=== PATIENT | female | born 1975 | race Two or more races ===

== ENCOUNTER 2016-07-12 14:58 | Inpatient (IN) | payer MEDICAID ==
[~2016-07-12] VITALS: Ht 160 cm; Wt 88.5 kg
[~2016-07-12 14:58] MED LIST: CITA20TA3 PO; CLON0.1D7 TD; LOSA50TA6 PO; NOR10T PO
[2016-07-12 15:32] LABS: Basophils # (auto) 0 uL; Basophils % (auto) 0.3 % (0.0-2.0); Eosinophils # (auto) 0.2 uL; Eosinophils % (auto) 2.9 % (0.0-7.0); Hematocrit 36.9 % (36.0-46.0); Hemoglobin 12.4 g/dL (12.2-16.2); Lymphocytes # (auto) 1.1 uL; Lymphocytes % (auto) 13.3 % (10.0-50.0); Mean Corpuscular Hemoglobin 29.9 pg (28.0-32.0); Mean Corpuscular Hgb Conc. 33.5 g/dL (32.0-36.0); Mean Corpuscular Volume 89.3 fL (80.0-100.0); Mean Platelet Volume 7.9 fL (7.4-10.4); Monocytes # (auto) 0.2 uL; Monocytes % (auto) 2.7 % (0.0-12.0); Neutrophils # (auto) 6.4 uL; Neutrophils % (auto) 80.8 % (37.0-80.0); Platelet Count (auto) 303 10^3/uL (140-450); Red Cell Distribution Width 14.5 % (11.6-16.0); White Blood Cell 7.9 10^3/uL (4.4-10.8)
[2016-07-12 15:53] LABS: Albumin 3.3 g/dL (3.4-5.0); Alkaline Phosphatase 197 U/L (45-117); Anion Gap 10 (5-15); Aspartate Aminotransferase 15 U/L (15-37); BUN/Creatinine Ratio 11.6; Bilirubin, Total 0.5 mg/dL (0.2-1.0); Blood Urea Nitrogen 31 mg/dL (7-18); Calcium 8.5 mg/dL (8.5-10.1); Carbon Dioxide 15 mmol/L (21-32); Chloride 113 mmol/L (98-107); GFR African American 25 mL/min; GFR Non-African American 21 mL/min; Glucose 260 mg/dL (74-106); Magnesium 2.2 mg/dL (1.6-2.6); Potassium 4.8 mmol/L (3.5-5.1); Sodium 138 mmol/L (136-145); Total Protein 6.9 g/dL (6.4-8.2)
[2016-07-12] MEDS ORDERED: LABETALOL HCL 5 MG/ML 4ML SYRINGE IV ONE (17:15)
[2016-07-12] MEDS ORDERED: MORPHINE SULFATE 4 MG/ML SYRG IV ONE (19:30)
[2016-07-12] MEDS ORDERED: cloNIDine HCL 0.1 MG TAB PO ONE (19:30)
[2016-07-12] MEDS ORDERED: ONDANSETRON HCL 4 MG/2 ML VIAL IV ONE (19:30)
[2016-07-12] MEDS ORDERED: HYDROmorphone HCL 2 MG/ML VL IV ONE (20:15)
[2016-07-12] MEDS ORDERED: PROMETHAZINE HCL 25 MG/ML 1ML IV ONE (20:15)
[2016-07-12] MEDS ORDERED: ACETAMINOPHEN 325 MG TAB PO PRN (21:15)
[2016-07-12] MEDS ORDERED: DEXTROSE (50%) 50ML SYRG IV PRN (21:15)
[2016-07-12] MEDS ORDERED: FAMOTIDINE 20 MG TAB PO SCH (22:00)
[2016-07-12] MEDS ORDERED: ENOXAPARIN SOD 30 MG/0.3 ML SYRINGE SC ONE (22:00)
[2016-07-12] MEDS: CARVEDILOL 3.125 MG TAB PO SCH (22:00)
[2016-07-12] MEDS: cloNIDine HCL 0.1 MG TAB PO SCH (22:00)
[2016-07-12] MEDS: ATORVASTATIN 20 MG TAB PO SCH (23:05)
[2016-07-12] MEDS ORDERED: TRAM50TA2 PO (23:41)
[2016-07-13] VITALS (9 sets, daily range): BP systolic 112–131; BP diastolic 72–86
[2016-07-13] MEDS: ACCU-CHEK COMFORT CURVE STRIP VI SCH ×4 (00:14→17:29)
[2016-07-13] MEDS: InsuLIN REG 1unit/0.01ml Soln (100units/ml) SC SCH ×4 (00:14→18:03)
[2016-07-13] MEDS: HYDROcodone-ACET 5/325MG TAB PO PRN ×2 (00:20→05:59)
[2016-07-13] MEDS: cloNIDine HCL 0.1 MG TAB PO SCH ×3 (05:58→21:48)
[2016-07-13] MEDS: FUROSEMIDE 20 MG TAB PO SCH ×2 (05:58→18:06)
[2016-07-13 06:34] LABS: Basophils # (auto) 0 uL; Basophils % (auto) 0.4 % (0.0-2.0); Eosinophils # (auto) 0.2 uL; Eosinophils % (auto) 4.4 % (0.0-7.0); Hemoglobin 10.2 g/dL (12.2-16.2); Lymphocytes # (auto) 1.8 uL; Lymphocytes % (auto) 31.4 % (10.0-50.0); Mean Corpuscular Hemoglobin 29.9 pg (28.0-32.0); Mean Corpuscular Hgb Conc. 33.8 g/dL (32.0-36.0); Mean Corpuscular Volume 88.5 fL (80.0-100.0); Mean Platelet Volume 7.9 fL (7.4-10.4); Monocytes # (auto) 0.4 uL; Monocytes % (auto) 6.8 % (0.0-12.0); Neutrophils # (auto) 3.2 uL; Platelet Count (auto) 265 10^3/uL (140-450); Red Cell Distribution Width 14.2 % (11.6-16.0); White Blood Cell 5.7 10^3/uL (4.4-10.8)
[2016-07-13 07:18] LABS: Albumin 2.6 g/dL (3.4-5.0); BUN/Creatinine Ratio 11.3; Bilirubin, Total 0.3 mg/dL (0.2-1.0); Calcium 7.9 mg/dL (8.5-10.1); Potassium 4.5 mmol/L (3.5-5.1); Total Protein 5.7 g/dL (6.4-8.2)
[2016-07-13] MEDS: ENOXAPARIN SOD 30 MG/0.3 ML SYRINGE SC SCH (09:29)
[2016-07-13] MEDS: METOCLOPRAMIDE HCL 10 MG TAB PO SCH ×3 (09:31→21:49)
[2016-07-13] MEDS: DEXAMETHASONE SOD PHOS 10MG/1ML VIAL INJ IV SCH (09:31)
[2016-07-13] MEDS: LOSARTAN POTASSIUM 50 MG TAB PO SCH (09:32)
[2016-07-13] MEDS: FOLIC ACID 1 MG TAB PO SCH (09:32)
[2016-07-13] MEDS: CARVEDILOL 3.125 MG TAB PO SCH ×2 (09:32→21:49)
[2016-07-13] MEDS: amLODIPine BESYLATE 5 MG TAB PO SCH (09:32)
[2016-07-13] MEDS: FAMOTIDINE 20 MG TAB PO SCH (09:32)
[2016-07-13] MEDS: PYRIDOXINE HCL 50 MG TAB PO SCH (09:33)
[2016-07-13] MEDS: CYANOCOBALAMIN 500 MCG TAB PO SCH (09:33)
[2016-07-13] MEDS: ASPirin 81 mg TAB PO SCH (09:33)
[2016-07-13] MEDS: SERTRALINE HCL 50 MG TAB PO SCH (09:33)
[2016-07-13] MEDS ORDERED: PROMETHAZINE HCL 25 MG/ML 1ML IV PRN (09:45)
[2016-07-13] MEDS ORDERED: KETOROLAC TROMETH 30 MG/ML 1ML VIAL IV ONE (09:45)
[2016-07-13] MEDS: diphenhdrAMINE HCL 50 MG/1 ML VL IV PRN (10:40)
[2016-07-13] MEDS: HYDROmorphone HCL 2 MG/ML VL IV PRN ×2 (14:37→22:27)
[2016-07-13] MEDS: ATORVASTATIN 20 MG TAB PO SCH (21:47)
[2016-07-13] MEDS: TEMAZEPAM 15 MG CAP PO PRN (21:49)
[2016-07-13 22:46] LABS: Urine Bilirubin Negative (Negative); Urine Blood Negative /uL (Negative); Urine Color Yellow (Yellow); Urine Glucose 3+ mg/dL (Normal); Urine Ketone Negative (Negative); Urine Nitrite Negative (Negative); Urine RBC 1 /hpf (0 - 4); Urine Squamous Epithelial Cell MOD /hpf (<5); Urine Urobilinogen Normal (Negative); Urine pH 5.5 (5.0-8.0)
[2016-07-14] MEDS: ACCU-CHEK COMFORT CURVE STRIP VI SCH ×4 (00:42→17:20)
[2016-07-14] MEDS: InsuLIN REG 1unit/0.01ml Soln (100units/ml) SC SCH ×4 (01:16→17:35)
[2016-07-14 05:30] VITALS: BP 139/71
[2016-07-14] MEDS: FUROSEMIDE 20 MG TAB PO SCH ×2 (06:18→17:47)
[2016-07-14] MEDS: METOCLOPRAMIDE HCL 10 MG TAB PO SCH ×3 (06:18→22:13)
[2016-07-14] MEDS: cloNIDine HCL 0.1 MG TAB PO SCH ×3 (06:19→22:14)
[2016-07-14 06:30] LABS: Basophils # (auto) 0 uL; Basophils % (auto) 0.1 % (0.0-2.0); Eosinophils # (auto) 0 uL; Hematocrit 32.6 % (36.0-46.0); Hemoglobin 10.9 g/dL (12.2-16.2); Lymphocytes # (auto) 1.1 uL; Lymphocytes % (auto) 9.5 % (10.0-50.0); Mean Corpuscular Hemoglobin 29.9 pg (28.0-32.0); Mean Corpuscular Hgb Conc. 33.6 g/dL (32.0-36.0); Mean Platelet Volume 8.2 fL (7.4-10.4); Monocytes # (auto) 0.3 uL; Monocytes % (auto) 2.6 % (0.0-12.0); Neutrophils % (auto) 87.8 % (37.0-80.0); Platelet Count (auto) 310 10^3/uL (140-450); White Blood Cell 11.4 10^3/uL (4.4-10.8)
[2016-07-14] MEDS: HYDROmorphone HCL 2 MG/ML VL IV PRN ×4 (06:39→22:16)
[2016-07-14 06:58] LABS: Albumin 2.9 g/dL (3.4-5.0); BUN/Creatinine Ratio 13.5; Bilirubin, Total 0.3 mg/dL (0.2-1.0); Calcium 8.3 mg/dL (8.5-10.1); Phosphorus 3.4 mg/dL (2.5-4.90); Total Protein 6.3 g/dL (6.4-8.2); Uric Acid 6.7 mg/dL (2.6-6.0)
[2016-07-14 07:03] LABS: Potassium 5.8 mmol/L (3.5-5.1)
[2016-07-14 09:31] VITALS: BP 132/71
[2016-07-14] MEDS: DEXAMETHASONE SOD PHOS 10MG/1ML VIAL INJ IV SCH (10:00)
[2016-07-14] MEDS: LOSARTAN POTASSIUM 50 MG TAB PO SCH (10:00)
[2016-07-14] MEDS: ASPirin 81 mg TAB PO SCH (10:38)
[2016-07-14] MEDS: FAMOTIDINE 20 MG TAB PO SCH (10:42)
[2016-07-14] MEDS: SERTRALINE HCL 50 MG TAB PO SCH (10:42)
[2016-07-14] MEDS: amLODIPine BESYLATE 5 MG TAB PO SCH (10:42)
[2016-07-14] MEDS: CARVEDILOL 3.125 MG TAB PO SCH ×2 (10:43→22:15)
[2016-07-14] MEDS: FOLIC ACID 1 MG TAB PO SCH (10:43)
[2016-07-14] MEDS: PYRIDOXINE HCL 50 MG TAB PO SCH (10:44)
[2016-07-14] MEDS: CYANOCOBALAMIN 500 MCG TAB PO SCH (10:44)
[2016-07-14] MEDS: ENOXAPARIN SOD 30 MG/0.3 ML SYRINGE SC SCH (10:44)
[2016-07-14 13:00] VITALS: BP 133/73
[2016-07-14 16:00] VITALS: BP 125/75
[2016-07-14 21:21] VITALS: BP 131/70
[2016-07-14] MEDS: ATORVASTATIN 20 MG TAB PO SCH (22:14)
[2016-07-15] MEDS: InsuLIN REG 1unit/0.01ml Soln (100units/ml) SC SCH ×4 (00:02→18:29)
[2016-07-15 05:18] VITALS: BP 126/69
[2016-07-15] MEDS: FUROSEMIDE 20 MG TAB PO SCH (06:00)
[2016-07-15] MEDS: cloNIDine HCL 0.1 MG TAB PO SCH ×3 (06:00→22:00)
[2016-07-15] MEDS: METOCLOPRAMIDE HCL 10 MG TAB PO SCH ×3 (06:02→21:53)
[2016-07-15] MEDS: ACCU-CHEK COMFORT CURVE STRIP VI SCH ×4 (06:02→18:27)
[2016-07-15 06:29] LABS: Basophils # (auto) 0 uL; Basophils % (auto) 0.6 % (0.0-2.0); Eosinophils # (auto) 0.1 uL; Eosinophils % (auto) 0.6 % (0.0-7.0); Hematocrit 32.3 % (36.0-46.0); Hemoglobin 10.6 g/dL (12.2-16.2); Lymphocytes # (auto) 2.2 uL; Lymphocytes % (auto) 24.9 % (10.0-50.0); Mean Corpuscular Hemoglobin 29.4 pg (28.0-32.0); Mean Corpuscular Hgb Conc. 32.9 g/dL (32.0-36.0); Mean Corpuscular Volume 89.5 fL (80.0-100.0); Mean Platelet Volume 8.2 fL (7.4-10.4); Monocytes # (auto) 0.6 uL; Monocytes % (auto) 6.4 % (0.0-12.0); Neutrophils # (auto) 5.8 uL; Neutrophils % (auto) 67.5 % (37.0-80.0); Platelet Count (auto) 289 10^3/uL (140-450); Red Cell Distribution Width 14.2 % (11.6-16.0); White Blood Cell 8.7 10^3/uL (4.4-10.8)
[2016-07-15 06:48] LABS: BUN/Creatinine Ratio 13.6; Calcium 7.8 mg/dL (8.5-10.1); Potassium 4.8 mmol/L (3.5-5.1)
[2016-07-15 08:21] VITALS: BP 124/90
[2016-07-15] MEDS: DEXAMETHASONE SOD PHOS 10MG/1ML VIAL INJ IV SCH (08:51)
[2016-07-15] MEDS: SERTRALINE HCL 50 MG TAB PO SCH (09:37)
[2016-07-15] MEDS: amLODIPine BESYLATE 5 MG TAB PO SCH (09:38)
[2016-07-15] MEDS: FOLIC ACID 1 MG TAB PO SCH (09:39)
[2016-07-15] MEDS: ASPirin 81 mg TAB PO SCH (09:40)
[2016-07-15] MEDS: CARVEDILOL 3.125 MG TAB PO SCH ×2 (09:40→22:00)
[2016-07-15] MEDS: FAMOTIDINE 20 MG TAB PO SCH (09:41)
[2016-07-15] MEDS: PYRIDOXINE HCL 50 MG TAB PO SCH (09:42)
[2016-07-15] MEDS: CYANOCOBALAMIN 500 MCG TAB PO SCH (09:43)
[2016-07-15] MEDS: ENOXAPARIN SOD 30 MG/0.3 ML SYRINGE SC SCH (09:44)
[2016-07-15] MEDS: HYDROmorphone HCL 2 MG/ML VL IV PRN ×3 (09:46→21:06)
[2016-07-15 12:15] VITALS: BP 98/62
[2016-07-15 17:06] VITALS: BP 114/70
[2016-07-15] MEDS: SODIUM CHLORIDE 0.9% 1,000 ML IV SCH (18:00)
[2016-07-15] MEDS: ATORVASTATIN 20 MG TAB PO SCH (21:44)
[2016-07-15 22:00] VITALS: BP 109/69
[2016-07-16] MEDS: HYDROmorphone HCL 2 MG/ML VL IV PRN ×6 (02:19→23:59)
[2016-07-16] MEDS: SODIUM CHLORIDE 0.9% 1,000 ML IV SCH ×3 (04:00→23:59)
[2016-07-16 05:11] VITALS: BP 105/58
[2016-07-16] MEDS: METOCLOPRAMIDE HCL 10 MG TAB PO SCH ×3 (06:21→22:03)
[2016-07-16] MEDS: cloNIDine HCL 0.1 MG TAB PO SCH (06:24)
[2016-07-16] MEDS: ACCU-CHEK COMFORT CURVE STRIP VI SCH ×5 (06:26→23:59)
[2016-07-16] MEDS: InsuLIN REG 1unit/0.01ml Soln (100units/ml) SC SCH ×4 (06:29→18:22)
[2016-07-16 08:00] VITALS: BP 104/58
[2016-07-16 08:48] LABS: Albumin 2.9 g/dL (3.4-5.0); BUN/Creatinine Ratio 13.8; Bilirubin, Total 0.4 mg/dL (0.2-1.0); Calcium 7.6 mg/dL (8.5-10.1); Potassium 4.6 mmol/L (3.5-5.1)
[2016-07-16 09:00] VITALS: BP 104/58
[2016-07-16] MEDS: ASPirin 81 mg TAB PO SCH (09:47)
[2016-07-16] MEDS: FOLIC ACID 1 MG TAB PO SCH (09:47)
[2016-07-16] MEDS: DEXAMETHASONE SOD PHOS 10MG/1ML VIAL INJ IV SCH ×2 (09:47→09:52)
[2016-07-16] MEDS: FAMOTIDINE 20 MG TAB PO SCH (09:48)
[2016-07-16] MEDS: CYANOCOBALAMIN 500 MCG TAB PO SCH (09:48)
[2016-07-16] MEDS: CARVEDILOL 3.125 MG TAB PO SCH ×2 (09:48→22:04)
[2016-07-16] MEDS: SERTRALINE HCL 50 MG TAB PO SCH (09:48)
[2016-07-16] MEDS: ENOXAPARIN SOD 30 MG/0.3 ML SYRINGE SC SCH (09:48)
[2016-07-16] MEDS: PYRIDOXINE HCL 50 MG TAB PO SCH (09:49)
[2016-07-16 13:00] VITALS: BP 109/67
[2016-07-16 17:00] VITALS: BP 116/63
[2016-07-16 22:00] VITALS: BP 114/60
[2016-07-16] MEDS: ATORVASTATIN 20 MG TAB PO SCH (22:03)
[2016-07-17] MEDS: HYDROmorphone HCL 2 MG/ML VL IV PRN ×5 (04:06→21:16)
[2016-07-17] MEDS: SODIUM CHLORIDE 0.9% 1,000 ML IV SCH ×2 (04:11→14:59)
[2016-07-17] MEDS: METOCLOPRAMIDE HCL 10 MG TAB PO SCH ×3 (05:26→21:15)
[2016-07-17] MEDS: ACCU-CHEK COMFORT CURVE STRIP VI SCH ×3 (05:29→17:35)
[2016-07-17 05:43] VITALS: BP 115/58
[2016-07-17] MEDS: InsuLIN REG 1unit/0.01ml Soln (100units/ml) SC SCH ×4 (06:03→18:07)
[2016-07-17 06:13] LABS: Potassium 4.2 mmol/L (3.5-5.1)
[2016-07-17 06:18] LABS: BUN/Creatinine Ratio 14.1; Calcium 7.3 mg/dL (8.5-10.1)
[2016-07-17 09:00] VITALS: BP 137/84
[2016-07-17] MEDS: ENOXAPARIN SOD 30 MG/0.3 ML SYRINGE SC SCH (09:26)
[2016-07-17] MEDS: FOLIC ACID 1 MG TAB PO SCH (09:26)
[2016-07-17] MEDS: ASPirin 81 mg TAB PO SCH (09:27)
[2016-07-17] MEDS: FAMOTIDINE 20 MG TAB PO SCH (09:27)
[2016-07-17] MEDS: CYANOCOBALAMIN 500 MCG TAB PO SCH (09:27)
[2016-07-17] MEDS: CARVEDILOL 3.125 MG TAB PO SCH ×2 (09:28→21:12)
[2016-07-17] MEDS: SERTRALINE HCL 50 MG TAB PO SCH (09:29)
[2016-07-17] MEDS: DEXAMETHASONE SOD PHOS 10MG/1ML VIAL INJ IV SCH ×2 (09:30→09:34)
[2016-07-17] MEDS: PYRIDOXINE HCL 50 MG TAB PO SCH (09:30)
[2016-07-17 13:00] VITALS: BP 132/57
[2016-07-17] MEDS: diphenhdrAMINE HCL 50 MG/1 ML VL IV PRN ×2 (14:54→21:31)
[2016-07-17 17:33] VITALS: BP 132/60
[2016-07-17] MEDS: ATORVASTATIN 20 MG TAB PO SCH (21:14)
[2016-07-17 22:24] VITALS: BP 152/85
[2016-07-17] MEDS: TEMAZEPAM 15 MG CAP PO PRN (22:27)
[2016-07-18 04:30] VITALS: BP 142/73
[2016-07-18] MEDS: HYDROmorphone HCL 2 MG/ML VL IV PRN ×5 (04:41→22:50)
[2016-07-18] MEDS: diphenhdrAMINE HCL 50 MG/1 ML VL IV PRN ×5 (04:53→22:50)
[2016-07-18] MEDS: InsuLIN REG 1unit/0.01ml Soln (100units/ml) SC SCH ×4 (06:00→18:01)
[2016-07-18] MEDS: METOCLOPRAMIDE HCL 10 MG TAB PO SCH ×3 (06:00→22:00)
[2016-07-18] MEDS: SODIUM CHLORIDE 0.9% 1,000 ML IV SCH (06:11)
[2016-07-18] MEDS: ACCU-CHEK COMFORT CURVE STRIP VI SCH ×4 (06:12→17:56)
[2016-07-18 08:00] VITALS: BP 153/83
[2016-07-18 08:22] LABS: Calcium 7.2 mg/dL (8.5-10.1); Potassium 4.2 mmol/L (3.5-5.1)
[2016-07-18 08:25] LABS: Albumin 2.7 g/dL (3.4-5.0); BUN/Creatinine Ratio 11.5
[2016-07-18 08:28] LABS: Bilirubin, Total 0.3 mg/dL (0.2-1.0); Total Protein 5.5 g/dL (6.4-8.2)
[2016-07-18 08:39] LABS: Basophils # (auto) 0 uL; Basophils % (auto) 0.6 % (0.0-2.0); Eosinophils # (auto) 0.1 uL; Eosinophils % (auto) 1.9 % (0.0-7.0); Hematocrit 31.9 % (36.0-46.0); Hemoglobin 10.6 g/dL (12.2-16.2); Lymphocytes # (auto) 1.2 uL; Lymphocytes % (auto) 15.1 % (10.0-50.0); Mean Corpuscular Hemoglobin 29.6 pg (28.0-32.0); Mean Corpuscular Hgb Conc. 33.3 g/dL (32.0-36.0); Mean Corpuscular Volume 88.8 fL (80.0-100.0); Mean Platelet Volume 8.3 fL (7.4-10.4); Monocytes # (auto) 0.4 uL; Monocytes % (auto) 4.6 % (0.0-12.0); Neutrophils % (auto) 77.8 % (37.0-80.0); Platelet Count (auto) 258 10^3/uL (140-450); Red Cell Distribution Width 14.2 % (11.6-16.0); White Blood Cell 7.8 10^3/uL (4.4-10.8)
[2016-07-18] MEDS: DEXAMETHASONE SOD PHOS 10MG/1ML VIAL INJ IV SCH (09:48)
[2016-07-18] MEDS: CYANOCOBALAMIN 500 MCG TAB PO SCH (09:49)
[2016-07-18] MEDS: ENOXAPARIN SOD 30 MG/0.3 ML SYRINGE SC SCH (09:49)
[2016-07-18] MEDS: FOLIC ACID 1 MG TAB PO SCH (09:49)
[2016-07-18] MEDS: ASPirin 81 mg TAB PO SCH (09:50)
[2016-07-18] MEDS: CARVEDILOL 3.125 MG TAB PO SCH (09:50)
[2016-07-18] MEDS: SERTRALINE HCL 50 MG TAB PO SCH (09:50)
[2016-07-18] MEDS: FAMOTIDINE 20 MG TAB PO SCH (09:50)
[2016-07-18] MEDS: PYRIDOXINE HCL 50 MG TAB PO SCH (09:50)
[2016-07-18 11:24] VITALS: BP 162/96
[2016-07-18 17:27] VITALS: BP 157/86
[2016-07-18 21:30] VITALS: BP 148/65
[2016-07-18] MEDS ORDERED: CARVEDILOL 3.125 MG TAB PO SCH (22:00)
[2016-07-18] MEDS: CARVEDILOL 12.5 MG TAB PO SCH (22:43)
[2016-07-18] MEDS: ATORVASTATIN 20 MG TAB PO SCH (22:55)
[2016-07-18] MEDS: TEMAZEPAM 15 MG CAP PO PRN (23:52)
[2016-07-19] MEDS: InsuLIN REG 1unit/0.01ml Soln (100units/ml) SC SCH ×4 (00:05→18:10)
[2016-07-19] MEDS: HYDROmorphone HCL 2 MG/ML VL IV PRN ×5 (04:16→22:03)
[2016-07-19] MEDS: diphenhdrAMINE HCL 50 MG/1 ML VL IV PRN ×2 (04:16→08:22)
[2016-07-19 04:44] VITALS: BP 145/75
[2016-07-19] MEDS: ACCU-CHEK COMFORT CURVE STRIP VI SCH ×4 (06:04→17:49)
[2016-07-19] MEDS: METOCLOPRAMIDE HCL 10 MG TAB PO SCH ×2 (06:05→16:09)
[2016-07-19 07:22] LABS: BUN/Creatinine Ratio 11.8; Calcium 7.9 mg/dL (8.5-10.1); Potassium 4.2 mmol/L (3.5-5.1)
[2016-07-19 08:00] VITALS: BP 152/87
[2016-07-19] MEDS: DEXAMETHASONE SOD PHOS 10MG/1ML VIAL INJ IV SCH (10:00)
[2016-07-19] MEDS: ENOXAPARIN SOD 30 MG/0.3 ML SYRINGE SC SCH (10:07)
[2016-07-19] MEDS: CYANOCOBALAMIN 500 MCG TAB PO SCH (10:07)
[2016-07-19] MEDS: SERTRALINE HCL 50 MG TAB PO SCH (10:08)
[2016-07-19] MEDS: CARVEDILOL 12.5 MG TAB PO SCH ×2 (10:08→21:52)
[2016-07-19] MEDS: ASPirin 81 mg TAB PO SCH (10:09)
[2016-07-19] MEDS: FOLIC ACID 1 MG TAB PO SCH (10:09)
[2016-07-19] MEDS: FAMOTIDINE 20 MG TAB PO SCH (10:09)
[2016-07-19] MEDS: PYRIDOXINE HCL 50 MG TAB PO SCH (10:10)
[2016-07-19] MEDS ORDERED: ERGOCALCIFEROL 50,000 UNIT(1.25MG) CAP PO SCH (11:30)
[2016-07-19 13:00] VITALS: BP 156/75
[2016-07-19] MEDS: SODIUM BICARBONATE 50ML VIAL 50 ML in SOD CHL 0.45% 1,000 ML IV SCH (13:39)
[2016-07-19] MEDS: metroNIDAZOLE 500 MG TAB PO SCH ×2 (16:08→21:51)
[2016-07-19 16:46] VITALS: BP 144/80
[2016-07-19] MEDS ORDERED: diphenhdrAMINE HCL 50 MG/1 ML VL IV ONE (18:15)
[2016-07-19] MEDS: ATORVASTATIN 20 MG TAB PO SCH (21:51)
[2016-07-19 22:00] VITALS: BP 133/76
[2016-07-19] MEDS: TEMAZEPAM 15 MG CAP PO PRN (22:03)
[2016-07-20] MEDS: ACCU-CHEK COMFORT CURVE STRIP VI SCH ×3 (00:13→12:16)
[2016-07-20] MEDS: InsuLIN REG 1unit/0.01ml Soln (100units/ml) SC SCH ×3 (00:19→12:21)
[2016-07-20] MEDS: SODIUM BICARBONATE 50ML VIAL 50 ML in SOD CHL 0.45% 1,000 ML IV SCH ×2 (01:40→08:22)
[2016-07-20] MEDS: HYDROmorphone HCL 2 MG/ML VL IV PRN ×4 (03:17→12:48)
[2016-07-20 05:11] VITALS: BP 140/77
[2016-07-20] MEDS: metroNIDAZOLE 500 MG TAB PO SCH (05:48)
[2016-07-20 05:58] LABS: Basophils # (auto) 0 uL; Basophils % (auto) 0.4 % (0.0-2.0); Eosinophils # (auto) 0.4 uL; Eosinophils % (auto) 6.6 % (0.0-7.0); Hemoglobin 9.8 g/dL (12.2-16.2); Lymphocytes # (auto) 1.3 uL; Lymphocytes % (auto) 21.5 % (10.0-50.0); Mean Corpuscular Hemoglobin 29.4 pg (28.0-32.0); Mean Corpuscular Hgb Conc. 32.6 g/dL (32.0-36.0); Mean Corpuscular Volume 90.1 fL (80.0-100.0); Mean Platelet Volume 8.5 fL (7.4-10.4); Monocytes # (auto) 0.6 uL; Monocytes % (auto) 9.1 % (0.0-12.0); Neutrophils # (auto) 3.8 uL; Neutrophils % (auto) 62.4 % (37.0-80.0); Platelet Count (auto) 232 10^3/uL (140-450); Red Cell Distribution Width 13.9 % (11.6-16.0); White Blood Cell 6.1 10^3/uL (4.4-10.8)
[2016-07-20 06:12] LABS: Albumin 2.6 g/dL (3.4-5.0); BUN/Creatinine Ratio 9.4; Calcium 7.2 mg/dL (8.5-10.1); Potassium 4.1 mmol/L (3.5-5.1)
[2016-07-20 06:15] LABS: Bilirubin, Total 0.3 mg/dL (0.2-1.0); Total Protein 5.7 g/dL (6.4-8.2)
[2016-07-20 07:40] VITALS: BP 162/92
[2016-07-20] MEDS ORDERED: amLODIPine BESYLATE 5 MG TAB PO SCH (10:00)
[2016-07-20] MEDS: DEXAMETHASONE SOD PHOS 10MG/1ML VIAL INJ IV SCH (10:00)
[2016-07-20] MEDS: ENOXAPARIN SOD 30 MG/0.3 ML SYRINGE SC SCH (10:03)
[2016-07-20] MEDS: SERTRALINE HCL 50 MG TAB PO SCH (10:04)
[2016-07-20] MEDS: ASPirin 81 mg TAB PO SCH (10:04)
[2016-07-20] MEDS: PYRIDOXINE HCL 50 MG TAB PO SCH (10:04)
[2016-07-20] MEDS: FOLIC ACID 1 MG TAB PO SCH (10:04)
[2016-07-20] MEDS: FAMOTIDINE 20 MG TAB PO SCH (10:04)
[2016-07-20] MEDS: CYANOCOBALAMIN 500 MCG TAB PO SCH (10:05)
[2016-07-20] MEDS: CARVEDILOL 12.5 MG TAB PO SCH (10:06)
[2016-07-20 10:27] VITALS: BP 162/92
[2016-07-20 12:08] VITALS: BP 163/77
[2016-07-20] MEDS ORDERED: SODIUM BICARBONATE 50ML VIAL 50 ML in SOD CHL 0.45% 1,000 ML IV SCH (13:15)
[2016-07-20 19:10] LABS: Sjogren's Anti-SS-A Antibody <0.2 AI (0.0-0.9)
== END 2016-07-20 15:09 | disposition home or self-care (01) | DRG 47 ==
LOC: ER 15:07 → OVERFLOW 15:08 → EAST 22:02
PROVIDERS: ADMIT Internal Medicine; ATTEND Internal Medicine
DX: G45.9 Transient cerebral ischemic attack, unspecified (principal); N17.0 Acute kidney failure with tubular necrosis; E44.0 Moderate protein-calorie malnutrition; E11.21 Type 2 diabetes mellitus with diabetic nephropathy; I95.9 Hypotension, unspecified; E72.11 Homocystinuria; E11.42 Type 2 diabetes mellitus with diabetic polyneuropathy; N18.4 Chronic kidney disease, stage 4 (severe); E87.8 Other disorders of electrolyte and fluid balance, not elsewhere classified; E86.0 Dehydration; I12.9 Hypertensive chronic kidney disease with stage 1 through stage 4 chronic kidney disease, or unspecified chronic kidney disease; E11.65 Type 2 diabetes mellitus with hyperglycemia; D64.9 Anemia, unspecified; F17.210 Nicotine dependence, cigarettes, uncomplicated; E11.51 Type 2 diabetes mellitus with diabetic peripheral angiopathy without gangrene; L29.9 Pruritus, unspecified; G47.10 Hypersomnia, unspecified; E11.22 Type 2 diabetes mellitus with diabetic chronic kidney disease; F32.9 Major depressive disorder, single episode, unspecified; K80.20 Calculus of gallbladder without cholecystitis without obstruction; R19.7 Diarrhea, unspecified; K59.00 Constipation, unspecified; E87.5 Hyperkalemia; E55.9 Vitamin D deficiency, unspecified; Z89.511 Acquired absence of right leg below knee; Z90.49 Acquired absence of other specified parts of digestive tract; Z90.710 Acquired absence of both cervix and uterus; Z80.0 Family history of malignant neoplasm of digestive organs; Z80.1 Family history of malignant neoplasm of trachea, bronchus and lung; Z82.5 Family history of asthma and other chronic lower respiratory diseases; Z81.8 Family history of other mental and behavioral disorders; Z83.3 Family history of diabetes mellitus; Z82.49 Family history of ischemic heart disease and other diseases of the circulatory system; Z88.1 Allergy status to other antibiotic agents; Z88.5 Allergy status to narcotic agent; Z88.2 Allergy status to sulfonamides; Z88.8 Allergy status to other drugs, medicaments and biological substances; Z79.899 Other long term (current) drug therapy; Z89.412 Acquired absence of left great toe; Z91.19 Patient's noncompliance with other medical treatment and regimen; Z68.34 Body mass index [BMI] 34.0-34.9, adult; Z91.14 Patient's other noncompliance with medication regimen
CPT/HCPCS: 36415; 70450; 70551; 80048; 80053; 81001; 82306; 82570; 82784; 82962; 83036; 83090; 83516; 83735; 84100; 84132; 84156; 84300; 84484; 84550; 85025; 86225; 86235; 86334; 86335; 86592; 86803; 87340; 93005; 93306; 93886; 94761; 96374; 96375; J1100; J1815; J1885; J3490

== ENCOUNTER 2016-12-30 12:01 | Emergency (ER) | payer MEDICAID ==
[~2016-12-30] VITALS: Ht 160 cm; Wt 87.1 kg
[~2016-12-30 12:01] MED LIST changes: +TRAM50TA2 PO
[2016-12-30 12:56] LABS: Basophils # (auto) 0 uL; Basophils % (auto) 0.2 % (0.0-2.0); CONDITION Y; Eosinophils # (auto) 0.1 uL; Eosinophils % (auto) 0.8 % (0.0-7.0); Hematocrit 30.1 % (36.0-46.0); Hemoglobin 9.7 g/dL (12.2-16.2); Lymphocytes % (auto) 10.8 % (10.0-50.0); Mean Corpuscular Hemoglobin 28.3 pg (28.0-32.0); Mean Corpuscular Hgb Conc. 32.3 g/dL (32.0-36.0); Mean Corpuscular Volume 87.6 fL (80.0-100.0); Mean Platelet Volume 7.7 fL (7.4-10.4); Monocytes # (auto) 0.4 uL; Monocytes % (auto) 4.8 % (0.0-12.0); Neutrophils # (auto) 7.6 uL; Neutrophils % (auto) 83.4 % (37.0-80.0); Platelet Count (auto) 340 10^3/uL (140-450); Red Cell Distribution Width 15.2 % (11.6-16.0); White Blood Cell 9.1 10^3/uL (4.4-10.8)
[2016-12-30 13:13] LABS: BUN/Creatinine Ratio 8.6; Potassium 4.3 mmol/L (3.5-5.1)
[2016-12-30 13:14] LABS: Albumin 2.2 g/dL (3.4-5.0); Bilirubin, Total 0.3 mg/dL (0.2-1.0); Calcium 8.2 mg/dL (8.5-10.1); Total Protein 7.1 g/dL (6.4-8.2)
[2016-12-30] MEDS ORDERED: CLINDAMYCIN 600MG IV 50 ML IV ONE (15:45)
[2016-12-30] MEDS ORDERED: VANCOMYCIN 1GM/250ML D5W 250 ML IV ONE (15:45)
[2016-12-30] MEDS ORDERED: cefTRIAXone 1GM/50ML D5W 50 ML IV ONE (15:45)
[2016-12-30 15:49] VITALS: BP 126/79
[2016-12-30] MEDS ORDERED: KETOROLAC TROMETH 30 MG/ML 1ML VIAL IV ONE (16:30)
[2016-12-30] MEDS ORDERED: diphenhdrAMINE HCL 50 MG/1 ML VL ONE (16:43)
[2016-12-30] MEDS ORDERED: diphenhdrAMINE HCL 50 MG/1 ML VL IV ONE (17:00)
== END 2016-12-30 17:47 | disposition home or self-care (01) ==
LOC: ER 12:01
DX: T81.4XXA Infection following a procedure, initial encounter (principal); L03.116 Cellulitis of left lower limb; E11.65 Type 2 diabetes mellitus with hyperglycemia; E11.22 Type 2 diabetes mellitus with diabetic chronic kidney disease; I12.9 Hypertensive chronic kidney disease with stage 1 through stage 4 chronic kidney disease, or unspecified chronic kidney disease; N18.4 Chronic kidney disease, stage 4 (severe); Z89.422 Acquired absence of other left toe(s); Z86.73 Personal history of transient ischemic attack (TIA), and cerebral infarction without residual deficits; Z88.6 Allergy status to analgesic agent; Z88.1 Allergy status to other antibiotic agents; Z90.49 Acquired absence of other specified parts of digestive tract; Z90.710 Acquired absence of both cervix and uterus
CPT/HCPCS: 36415; 73700; 80053; 83605; 85025; 87040; 94761; 96365; 96368; 96375; 99285; J0696; J1200; J1885; J3490

== ENCOUNTER 2017-10-15 21:58 | Emergency (ER) | payer MEDICAID, OTHER ==
[~2017-10-15] VITALS: Ht 160 cm; Wt 84.8 kg
[~2017-10-15 21:58] MED LIST changes: +AMLO5TAB2 PO; +CARV3.1240 PO; -CITA20TA3 PO; -CLON0.1D7 TD; +CLON0.1T PO; +DOXY100C2 PO; +HYDR-4683 PO; +INSLANTI SC; -LOSA50TA6 PO; -NOR10T PO
[2017-10-16] MEDS ORDERED: cloNIDine HCL 0.1 MG TAB PO ONE
[2017-10-16] MEDS ORDERED: fentaNYL CITRATE 100 MCG/2 ML VL IV ONE
[2017-10-16] MEDS ORDERED: diphenhdrAMINE HCL 50 MG/1 ML VL IV ONE
[2017-10-16] MEDS ORDERED: PROMETHAZINE HCL 25 MG/ML 1ML IV ONE
[2017-10-16] MEDS ORDERED: ALUM & MAG HYDROX-SIMETH LIQ(MAALOX) 30 ML PO ONE (01:30)
[2017-10-16] MEDS ORDERED: LABETALOL HCL 5 MG/ML ML 20ML VIAL IV ONE (01:30)
[2017-10-16 03:08] VITALS: BP 153/86
== END 2017-10-16 03:46 | disposition home or self-care (01) ==
LOC: ER 21:58 → EDBD 21:58 → ER 10-16 03:46
DX: K52.9 Noninfective gastroenteritis and colitis, unspecified (principal); I12.9 Hypertensive chronic kidney disease with stage 1 through stage 4 chronic kidney disease, or unspecified chronic kidney disease; E11.22 Type 2 diabetes mellitus with diabetic chronic kidney disease; N18.9 Chronic kidney disease, unspecified; Z86.73 Personal history of transient ischemic attack (TIA), and cerebral infarction without residual deficits; Z90.710 Acquired absence of both cervix and uterus; Z90.49 Acquired absence of other specified parts of digestive tract; Z88.2 Allergy status to sulfonamides; Z88.1 Allergy status to other antibiotic agents; Z88.8 Allergy status to other drugs, medicaments and biological substances
CPT/HCPCS: 74176; 96374; 96375; 99284; J1200; J2550; J3010

== ENCOUNTER 2017-11-08 17:57 | Inpatient (IN) | payer MEDICAID, OTHER ==
[~2017-11-08] VITALS: Ht 160 cm; Wt 90.3 kg
[2017-11-08 19:19] LABS: Basophils # (auto) 0 uL; Eosinophils # (auto) 0.2 uL; Lymphocytes # (auto) 0.9 uL; Monocytes # (auto) 0.3 uL; Monocytes % (auto) 4.9 % (0.0-12.0)
[2017-11-08 19:21] LABS: Basophils % (auto) 0.8 % (0.0-2.0); Eosinophils % (auto) 3.2 % (0.0-7.0); Hematocrit 20.8 % (36.0-46.0); Lymphocytes % (auto) 14.1 % (10.0-50.0); Mean Corpuscular Hemoglobin 29.7 pg (28.0-32.0); Mean Corpuscular Volume 89.9 fL (80.0-100.0); Neutrophils # (auto) 4.7 uL; Platelet Count (auto) 221 10^3/uL (140-450); Red Blood Cells 2.31 10^6/uL (4.0-5.20); Red Cell Distribution Width 16.3 % (11.8-14.3)
[2017-11-08 19:30] LABS: Hemoglobin 6.9 g/dL (12.2-16.2)
[2017-11-08 19:36] LABS: Albumin 2.7 g/dL (3.4-5.0); Calcium 6.8 mg/dL (8.5-10.1)
[2017-11-08 19:45] LABS: BUN/Creatinine Ratio 6.5; Bilirubin, Total 0.4 mg/dL (0.2-1.0); Total Protein 6.2 g/dL (6.4-8.2)
[2017-11-08 20:10] LABS: INR 0.98 (0.9-1.15); Partial Thromboplastin Time 31.5 sec (23.78-33.04); Prothrombin Time 10.5 sec (9.27-12.13)
[2017-11-08 20:21] LABS: Magnesium 2.4 mg/dL (1.6-2.6)
[2017-11-08] MEDS ORDERED: MORPHINE SULF INJ 2 MG/ML SYRINGE 1ML ONE (20:37)
[2017-11-08] MEDS ORDERED: MORPHINE SULFATE 8mg/ml INJ SDV IV ONE (20:45)
[2017-11-08] MEDS ORDERED: diphenhdrAMINE HCL 50 MG/1 ML VL ONE (20:49)
[2017-11-08] MEDS ORDERED: diphenhdrAMINE HCL 50 MG/1 ML VL IV ONE (21:00)
[2017-11-08] MEDS ORDERED: FUROSEMIDE 40 MG/4 ML VIAL IV ONE (21:15)
[2017-11-08] MEDS ORDERED: PROMETHAZINE HCL 25 MG/ML 1ML IV ONE (22:30)
[2017-11-08 23:35] VITALS: BP 147/87
[2017-11-08 23:50] VITALS: BP 152/90
[2017-11-09] MEDS ORDERED: LORazepam 2MG/ML-1ML VIAL IV ONE (00:45)
[2017-11-09] MEDS ORDERED: diphenhdrAMINE HCL 50 MG/1 ML VL IV ONE ×3 (01:45→22:45)
[2017-11-09 02:30] VITALS: BP 148/79
[2017-11-09] MEDS ORDERED: MORPHINE SULFATE 8mg/ml INJ SDV IV PRN (02:30)
[2017-11-09] MEDS ORDERED: MORPHINE SULF(PF) 0.5MG/ML 10ML VIAL IV PRN (02:30)
[2017-11-09] MEDS ORDERED: NITROGLYCERIN 0.4 MG SL TAB SL PRN (02:30)
[2017-11-09] MEDS ORDERED: ACETAMINOPHEN 325 MG TAB PO PRN (02:30)
[2017-11-09] MEDS ORDERED: PANTOPRAZOLE 40 MG/10 ML VIAL IV ONE (02:30)
[2017-11-09] MEDS ORDERED: DEXTROSE (50%) 50ML SYRG IV PRN (02:45)
[2017-11-09 04:05] VITALS: BP 136/78
[2017-11-09 04:20] VITALS: BP 142/77
[2017-11-09] MEDS: InsuLIN REG 1unit/0.01ml Soln (100units/ml) SC SCH ×3 (06:00→18:35)
[2017-11-09 06:20] LABS: Hematocrit 23.6 % (36.0-46.0)
[2017-11-09] MEDS: ACCU-CHEK COMFORT CURVE STRIP VI SCH ×3 (06:24→18:17)
[2017-11-09 07:40] VITALS: BP 163/90
[2017-11-09] MEDS: PANTOPRAZOLE 40 MG/10 ML VIAL IV SCH (09:32)
[2017-11-09] MEDS: amLODIPine BESYLATE 5 MG TAB PO SCH (09:32)
[2017-11-09] MEDS: CARVEDILOL 3.125 MG TAB PO SCH ×2 (09:32→22:16)
[2017-11-09] MEDS: cloNIDine HCL 0.1 MG TAB PO SCH ×2 (09:32→22:16)
[2017-11-09] MEDS ORDERED: GOLYTELY 4L KIT PO ONE (16:45)
[2017-11-09 20:28] LABS: Basophils # (auto) 0 uL; Basophils % (auto) 0.8 % (0.0-2.0); Eosinophils # (auto) 0.3 uL; Eosinophils % (auto) 4.2 % (0.0-7.0); Hematocrit 27.7 % (36.0-46.0); Hemoglobin 9.3 g/dL (12.2-16.2); Lymphocytes % (auto) 16.4 % (10.0-50.0); Mean Corpuscular Hemoglobin 30.2 pg (28.0-32.0); Mean Corpuscular Hgb Conc. 33.6 g/dL (32.0-36.0); Mean Corpuscular Volume 89.7 fL (80.0-100.0); Monocytes # (auto) 0.4 uL; Monocytes % (auto) 5.9 % (0.0-12.0); Neutrophils # (auto) 4.5 uL; Neutrophils % (auto) 72.7 % (37.0-80.0); Platelet Count (auto) 200 10^3/uL (140-450); Red Blood Cells 3.09 10^6/uL (4.0-5.20); Red Cell Distribution Width 15.8 % (11.8-14.3); White Blood Cell 6.3 10^3/uL (4.4-10.8)
[2017-11-09] MEDS ORDERED: MORPHINE SULF INJ 2 MG/ML SYRINGE 1ML ONE (22:13)
[2017-11-09] MEDS ORDERED: diphenhdrAMINE HCL 50 MG/1 ML VL ONE (22:38)
[2017-11-10] MEDS: ACCU-CHEK COMFORT CURVE STRIP VI SCH ×5 (00:25→23:35)
[2017-11-10 02:00] VITALS: BP 154/83
[2017-11-10] MEDS: HYDROcodone-ACET 5/325MG TAB PO PRN ×3 (02:11→22:01)
[2017-11-10 05:00] VITALS: BP_SYST 154; BP_SYST 167; BP_DIAS 85; BP_DIAS 86
[2017-11-10] MEDS: InsuLIN REG 1unit/0.01ml Soln (100units/ml) SC SCH ×5 (05:46→23:35)
[2017-11-10] MEDS ORDERED: GOLYTELY 4L KIT PO ONE (06:00)
[2017-11-10 06:25] LABS: Basophils # (auto) 0 uL; Basophils % (auto) 0.8 % (0.0-2.0); Eosinophils # (auto) 0.3 uL; Eosinophils % (auto) 4.7 % (0.0-7.0); Hematocrit 29.5 % (36.0-46.0); Hemoglobin 9.9 g/dL (12.2-16.2); Lymphocytes # (auto) 1.3 uL; Lymphocytes % (auto) 21.7 % (10.0-50.0); Mean Corpuscular Hemoglobin 30.1 pg (28.0-32.0); Mean Corpuscular Hgb Conc. 33.6 g/dL (32.0-36.0); Mean Corpuscular Volume 89.4 fL (80.0-100.0); Monocytes # (auto) 0.3 uL; Monocytes % (auto) 5.2 % (0.0-12.0); Neutrophils # (auto) 4.1 uL; Neutrophils % (auto) 67.6 % (37.0-80.0); Nucleated Red Blood Cells % 0.1 %; Platelet Count (auto) 221 10^3/uL (140-450); Red Cell Distribution Width 15.6 % (11.8-14.3)
[2017-11-10 07:16] LABS: Albumin 2.9 g/dL (3.4-5.0); BUN/Creatinine Ratio 6.5; Bilirubin, Total 0.4 mg/dL (0.2-1.0); Calcium 7.4 mg/dL (8.5-10.1); Potassium 4.9 mmol/L (3.5-5.1); Total Protein 6.5 g/dL (6.4-8.2)
[2017-11-10 07:22] LABS: Phosphorus 8.1 mg/dL (2.5-4.90)
[2017-11-10 09:00] VITALS: BP 139/77
[2017-11-10] MEDS ORDERED: MIDAZOLAM HCL 5 MG/ML-1ML VIAL ONE (09:00)
[2017-11-10] MEDS ORDERED: diphenhdrAMINE HCL 50 MG/1 ML VL ONE (09:00)
[2017-11-10] MEDS ORDERED: SODIUM CHLORIDE LOCK 10 ML ONE (09:00)
[2017-11-10] MEDS ORDERED: fentaNYL CITRATE 100 MCG/2 ML VL ONE ×2 (09:01→11:44)
[2017-11-10] MEDS: PANTOPRAZOLE 40 MG/10 ML VIAL IV SCH (09:58)
[2017-11-10] MEDS: amLODIPine BESYLATE 5 MG TAB PO SCH (09:59)
[2017-11-10] MEDS: cloNIDine HCL 0.1 MG TAB PO SCH ×2 (10:00→22:00)
[2017-11-10] MEDS: CARVEDILOL 3.125 MG TAB PO SCH ×2 (10:00→22:00)
[2017-11-10] MEDS ORDERED: SODIUM CHL 0.9% 1000 ML BAG XX ONE (10:45)
[2017-11-10] MEDS ORDERED: EPOETIN ALFA 3,000 UNIT/1 ML VIAL IV ONE ×2 (10:45→11:00)
[2017-11-10] MEDS ORDERED: EPOETIN ALFA 2,000 UNIT/1 ML VIAL IV ONE (11:00)
[2017-11-10] MEDS ORDERED: LIDOCAINE 2% (LOCAL ANESTH.) PF 5ml SDV ONE ×2 (11:17→12:31)
[2017-11-10] MEDS ORDERED: MIDAZOLAM HCL 1MG/1ML-2 ML VIAL ONE (11:44)
[2017-11-10] MEDS ORDERED: HEPARIN SODIUM (PORCINE) 5000 UNITS/ML 1ML VIAL ONE (12:42)
[2017-11-10] MEDS ORDERED: diphenhdrAMINE HCL 25 MG CAP PO PRN (15:15)
[2017-11-10 16:35] VITALS: BP 121/74
[2017-11-10 21:57] VITALS: BP 129/67
[2017-11-11 05:00] VITALS: BP 132/69
[2017-11-11] MEDS: InsuLIN REG 1unit/0.01ml Soln (100units/ml) SC SCH ×4 (05:39→23:51)
[2017-11-11] MEDS: ACCU-CHEK COMFORT CURVE STRIP VI SCH ×4 (05:40→23:51)
[2017-11-11 05:57] LABS: Basophils # (auto) 0 uL; Basophils % (auto) 0.8 % (0.0-2.0); Eosinophils # (auto) 0.3 uL; Eosinophils % (auto) 4.9 % (0.0-7.0); Hematocrit 26.6 % (36.0-46.0); Hemoglobin 9.1 g/dL (12.2-16.2); Lymphocytes % (auto) 17.9 % (10.0-50.0); Mean Corpuscular Hemoglobin 30.4 pg (28.0-32.0); Mean Corpuscular Hgb Conc. 34.1 g/dL (32.0-36.0); Mean Corpuscular Volume 89.1 fL (80.0-100.0); Monocytes # (auto) 0.3 uL; Monocytes % (auto) 5.6 % (0.0-12.0); Neutrophils # (auto) 4.2 uL; Neutrophils % (auto) 70.8 % (37.0-80.0); Nucleated Red Blood Cells % 0.1 %; Platelet Count (auto) 204 10^3/uL (140-450); Red Blood Cells 2.99 10^6/uL (4.0-5.20); Red Cell Distribution Width 15.3 % (11.8-14.3); White Blood Cell 5.9 10^3/uL (4.4-10.8)
[2017-11-11 06:17] LABS: Albumin 2.4 g/dL (3.4-5.0); Calcium 7.3 mg/dL (8.5-10.1); Potassium 5.5 mmol/L (3.5-5.1)
[2017-11-11 06:24] LABS: BUN/Creatinine Ratio 6.8; Bilirubin, Total 0.4 mg/dL (0.2-1.0); Total Protein 5.4 g/dL (6.4-8.2)
[2017-11-11] MEDS ORDERED: diphenhdrAMINE HCL 50 MG/1 ML VL ONE (08:23)
[2017-11-11] MEDS ORDERED: SODIUM CHLORIDE LOCK 10 ML ONE (08:23)
[2017-11-11] MEDS: HYDROcodone-ACET 5/325MG TAB PO PRN ×2 (09:43→22:54)
[2017-11-11] MEDS ORDERED: EPOETIN ALFA 10,000 UNIT/1 ML VIAL IV ONE (09:45)
[2017-11-11] MEDS ORDERED: SODIUM CHL 0.9% 1000 ML BAG XX ONE (09:45)
[2017-11-11 10:10] VITALS: BP 130/72
[2017-11-11] MEDS: cloNIDine HCL 0.1 MG TAB PO SCH ×2 (12:46→21:58)
[2017-11-11] MEDS: CARVEDILOL 3.125 MG TAB PO SCH ×2 (12:46→21:58)
[2017-11-11] MEDS: fentaNYL CITRATE 100 MCG/2 ML VL ONE ×3 (13:14→13:24)
[2017-11-11] MEDS: MIDAZOLAM HCL 5 MG/ML-1ML VIAL ONE ×3 (13:14→13:24)
[2017-11-11 13:17] VITALS: BP 155/78
[2017-11-11 14:29] VITALS: BP 151/78
[2017-11-11 17:30] VITALS: BP 143/76
[2017-11-11] MEDS: amLODIPine BESYLATE 5 MG TAB PO SCH (17:44)
[2017-11-11] MEDS: PANTOPRAZOLE 40 MG/10 ML VIAL IV SCH (17:46)
[2017-11-11 21:46] VITALS: BP 139/75
[2017-11-11 23:22] LABS: Urine Bacteria MOD /hpf (None Seen); Urine Blood TRACE /uL (Negative); Urine Specific Gravity 1.008 (1.001-1.035); Urine WBC 59 /hpf (0 - 5)
[2017-11-12 05:08] VITALS: BP 135/73
[2017-11-12] MEDS: InsuLIN REG 1unit/0.01ml Soln (100units/ml) SC SCH ×4 (05:25→23:57)
[2017-11-12] MEDS: ACCU-CHEK COMFORT CURVE STRIP VI SCH ×4 (05:25→23:56)
[2017-11-12 07:54] LABS: Basophils # (auto) 0 uL; Basophils % (auto) 0.8 % (0.0-2.0); Eosinophils # (auto) 0.2 uL; Eosinophils % (auto) 3.9 % (0.0-7.0); Hematocrit 28.5 % (36.0-46.0); Hemoglobin 9.5 g/dL (12.2-16.2); Lymphocytes # (auto) 1.2 uL; Lymphocytes % (auto) 19.7 % (10.0-50.0); Mean Corpuscular Hemoglobin 30.2 pg (28.0-32.0); Mean Corpuscular Hgb Conc. 33.3 g/dL (32.0-36.0); Mean Corpuscular Volume 90.7 fL (80.0-100.0); Monocytes # (auto) 0.4 uL; Monocytes % (auto) 7.3 % (0.0-12.0); Neutrophils % (auto) 68.3 % (37.0-80.0); Nucleated Red Blood Cells % 0.1 %; Platelet Count (auto) 156 10^3/uL (140-450); Red Blood Cells 3.15 10^6/uL (4.0-5.20); Red Cell Distribution Width 15.2 % (11.8-14.3); White Blood Cell 5.9 10^3/uL (4.4-10.8)
[2017-11-12 08:00] LABS: Albumin 2.4 g/dL (3.4-5.0); BUN/Creatinine Ratio 5.2; Bilirubin, Total 0.5 mg/dL (0.2-1.0); Calcium 7.4 mg/dL (8.5-10.1); Total Protein 5.6 g/dL (6.4-8.2)
[2017-11-12] MEDS: HYDROcodone-ACET 5/325MG TAB PO PRN ×2 (08:17→21:48)
[2017-11-12 09:34] VITALS: BP 140/69
[2017-11-12] MEDS: PANTOPRAZOLE 40 MG/10 ML VIAL IV SCH (10:17)
[2017-11-12] MEDS: CARVEDILOL 3.125 MG TAB PO SCH ×2 (10:18→21:49)
[2017-11-12] MEDS: amLODIPine BESYLATE 5 MG TAB PO SCH (10:18)
[2017-11-12] MEDS: cloNIDine HCL 0.1 MG TAB PO SCH ×2 (10:19→21:49)
[2017-11-12 13:24] VITALS: BP 135/66
[2017-11-12 17:34] VITALS: BP 123/74
[2017-11-12 21:34] VITALS: BP 132/72
[2017-11-13 05:00] VITALS: BP 142/75
[2017-11-13] MEDS: ACCU-CHEK COMFORT CURVE STRIP VI SCH ×3 (05:38→18:18)
[2017-11-13] MEDS: InsuLIN REG 1unit/0.01ml Soln (100units/ml) SC SCH ×3 (05:38→18:18)
[2017-11-13 09:00] VITALS: BP 137/68
[2017-11-13] MEDS: PANTOPRAZOLE 40 MG/10 ML VIAL IV SCH (10:34)
[2017-11-13] MEDS: CARVEDILOL 3.125 MG TAB PO SCH ×2 (10:52→21:25)
[2017-11-13] MEDS: amLODIPine BESYLATE 5 MG TAB PO SCH (10:53)
[2017-11-13] MEDS: cloNIDine HCL 0.1 MG TAB PO SCH ×2 (10:54→21:25)
[2017-11-13] MEDS: HYDROcodone-ACET 5/325MG TAB PO PRN ×2 (11:01→21:24)
[2017-11-13 12:37] VITALS: BP 149/70
[2017-11-13 16:35] VITALS: BP 143/72
[2017-11-13 20:56] VITALS: BP 131/73
[2017-11-13 21:35] VITALS: BP 131/73
== END 2017-11-13 22:50 | disposition home or self-care (01) | DRG 194 ==
LOC: EDSEX 17:57 → EDBD 17:57 → ER 17:57 → TELE 17:58 → TELE-EAST 11-10 01:35
PROVIDERS: ADMIT Nurse Practitioner; ATTEND Internal Medicine
PROC: 0DJD8ZZ Inspection of Lower Intestinal Tract, Via Natural or Artificial Opening Endoscopic (ICD-10-PCS; 2017-11-11)
PROC: 5A1D70Z Performance of Urinary Filtration, Intermittent, Less than 6 Hours Per Day (ICD-10-PCS; 2017-11-11)
PROC: 30233N1 Transfusion of Nonautologous Red Blood Cells into Peripheral Vein, Percutaneous Approach (ICD-10-PCS; principal; 2017-11-11 13:09)
DX: I13.2 Hypertensive heart and chronic kidney disease with heart failure and with stage 5 chronic kidney disease, or end stage renal disease (principal); E43 Unspecified severe protein-calorie malnutrition; N17.9 Acute kidney failure, unspecified; R18.8 Other ascites; E11.21 Type 2 diabetes mellitus with diabetic nephropathy; E83.39 Other disorders of phosphorus metabolism; N18.6 End stage renal disease; I50.41 Acute combined systolic (congestive) and diastolic (congestive) heart failure; E87.5 Hyperkalemia; D63.1 Anemia in chronic kidney disease; E11.22 Type 2 diabetes mellitus with diabetic chronic kidney disease; E21.3 Hyperparathyroidism, unspecified; E78.5 Hyperlipidemia, unspecified; Z68.35 Body mass index [BMI] 35.0-35.9, adult; I25.10 Atherosclerotic heart disease of native coronary artery without angina pectoris; J98.11 Atelectasis; K64.8 Other hemorrhoids; J45.909 Unspecified asthma, uncomplicated; N28.1 Cyst of kidney, acquired; Z80.0 Family history of malignant neoplasm of digestive organs; Z80.1 Family history of malignant neoplasm of trachea, bronchus and lung; Z81.8 Family history of other mental and behavioral disorders; Z82.49 Family history of ischemic heart disease and other diseases of the circulatory system; Z82.5 Family history of asthma and other chronic lower respiratory diseases; Z83.3 Family history of diabetes mellitus; Z86.73 Personal history of transient ischemic attack (TIA), and cerebral infarction without residual deficits; Z89.511 Acquired absence of right leg below knee; Z87.891 Personal history of nicotine dependence; Z90.710 Acquired absence of both cervix and uterus; Z91.19 Patient's noncompliance with other medical treatment and regimen; Z99.2 Dependence on renal dialysis; Z90.49 Acquired absence of other specified parts of digestive tract
CPT/HCPCS: 36415; 71045; 74176; 76937; 80053; 81001; 82962; 83036; 83735; 83880; 84100; 84484; 84702; 85014; 85018; 85025; 85610; 85730; 86850; 86900; 86901; 86920; 87340; 90935; 93005; 93306; 96374; 96375; 96376; 99152; C9113; J0885; J1642; J1815; J2250; Q4081

== ENCOUNTER 2020-06-02 14:28 | Inpatient (IN) | payer MEDICAID ==
[~2020-06-02] VITALS: Ht 160 cm; Wt 95.3 kg
[~2020-06-02 14:28] MED LIST changes: +AMLO5TAB15 PO; -AMLO5TAB2 PO; -DOXY100C2 PO; -HYDR-4683 PO; +HYDR-4833 PO; -INSLANTI SC
[2020-06-02 15:44] LABS: Basophils # (auto) 0 10 ^3/uL (0-0.2); Basophils % (auto) 0.4 % (0.0-2.0); Eosinophils # (auto) 0 10 ^3/uL (0-0.8); Eosinophils % (auto) 0.8 % (0.0-7.0); Hematocrit 28.6 % (36.0-46.0); Hemoglobin 9.7 g/dL (12.2-16.2); Lymphocytes # (auto) 0.5 10 ^3/uL (0.4-5.4); Lymphocytes % (auto) 15.6 % (10.0-50.0); Mean Corpuscular Hemoglobin 32.3 pg (28.0-32.0); Mean Corpuscular Hgb Conc. 33.9 g/dL (32.0-36.0); Mean Corpuscular Volume 95.4 fL (80.0-100.0); Monocytes # (auto) 0.2 10 ^3/uL (0-1.3); Monocytes % (auto) 5.6 % (0.0-12.0); Neutrophils # (auto) 2.3 10 ^3/uL (1.6-8.6); Neutrophils % (auto) 77.6 % (37.0-80.0); Platelet Count (auto) 140 10^3/uL (140-450)
[2020-06-02 16:00] LABS: Albumin 3.5 g/dL (3.4-5.0); Calcium 6.4 mg/dL (8.5-10.1); Potassium 3.8 mmol/L (3.5-5.1)
[2020-06-02 16:06] LABS: BUN/Creatinine Ratio 4.4; Bilirubin, Total 0.7 mg/dL (0.2-1.0); Total Protein 7.1 g/dL (6.4-8.2)
[2020-06-02] MEDS ORDERED: methylPREDNISolone SOD SUCC 125 MG/2 ML VL IV ONE (18:30)
[2020-06-02] MEDS ORDERED: AZITHROMYCIN 500MG/ 250ML 250 ML IV ONE (18:30)
[2020-06-02] MEDS ORDERED: MORPHINE SULFATE 4 MG/ML SYR/VIAL IV ONE (18:30)
[2020-06-02] MEDS ORDERED: ONDANSETRON HCL 4 MG/2 ML VIAL IV ONE (18:30)
[2020-06-03] MEDS ORDERED: ONDANSETRON HCL 4 MG/2 ML VIAL IV PRN (02:00)
[2020-06-03] MEDS ORDERED: levoFLOXacin 500MG 100 ML IV ONE (02:00)
[2020-06-03] MEDS: HYDROcodone-ACET 5/325MG TAB PO PRN ×2 (02:54→09:54)
[2020-06-03] MEDS ORDERED: ALBUTEROL SULF HFA 90MCG INH 200DOSE IN PRN (05:30)
[2020-06-03] MEDS ORDERED: ALBUTEROL SULF HFA 90MCG INH 200DOSE IN SCH (06:00)
[2020-06-03] MEDS: metroNIDAZOLE 500MG/100ML 100 ML IV SCH ×3 (06:22→21:54)
[2020-06-03] MEDS: cloNIDine HCL 0.1 MG TAB PO SCH ×2 (09:53→21:55)
[2020-06-03] MEDS: DexAMETHasone SOD PHOS 10MG/1ML VIAL INJ IV SCH (09:53)
[2020-06-03] MEDS: PROMETHAZINE HCL 25 MG/ML 1ML IV PRN ×2 (09:54→22:08)
[2020-06-03] MEDS: amLODIPine BESYLATE 5 MG TAB PO SCH (09:54)
[2020-06-03] MEDS ORDERED: CARVEDILOL 3.125 MG TAB PO SCH (10:00)
[2020-06-03] MEDS ORDERED: hydrALAZINE HCL 20 MG/ML VL IV PRN (13:30)
[2020-06-03 16:00] VITALS: BP 156/89
[2020-06-03] MEDS ORDERED: CARV6.25 PO (16:08)
[2020-06-03] MEDS ORDERED: PERCOT PO (17:01)
[2020-06-03] MEDS ORDERED: HYDR-531 PO (19:29)
[2020-06-03] MEDS ORDERED: MORPHINE SULF INJ 2 MG/ML SYRINGE 1ML IV PRN (21:15)
[2020-06-03] MEDS: CARVEDILOL 3.125 MG TAB PO SCH (21:53)
[2020-06-04] VITALS: BP 152/71
[2020-06-04] MEDS: MORPHINE SULF INJ 2 MG/ML SYRINGE 1ML IV PRN ×2 (03:24→11:45)
[2020-06-04] MEDS: metroNIDAZOLE 500MG/100ML 100 ML IV SCH ×2 (05:33→06:05)
[2020-06-04] MEDS: PROMETHAZINE HCL 25 MG/ML 1ML IV PRN (06:06)
[2020-06-04] MEDS ORDERED: SODIUM CHL 0.9% 1000 ML BAG XX ONE (07:00)
[2020-06-04 08:00] VITALS: BP 147/72
[2020-06-04] MEDS: amLODIPine BESYLATE 5 MG TAB PO SCH (10:00)
[2020-06-04] MEDS: CARVEDILOL 3.125 MG TAB PO SCH (10:00)
[2020-06-04] MEDS: DexAMETHasone SOD PHOS 10MG/1ML VIAL INJ IV SCH (11:36)
[2020-06-04] MEDS: cloNIDine HCL 0.1 MG TAB PO SCH (11:38)
[2020-06-04 12:50] VITALS: BP 139/71
[2020-06-04] MEDS ORDERED: EPOETIN ALFA 10,000 UNIT/1 ML VIAL SC ONE (21:00)
[2020-06-05] MEDS ORDERED: levoFLOXacin 250MG 50 ML IV ONE (10:00)
[2020-06-07] MEDS ORDERED: levoFLOXacin 250MG 50 ML IV ONE (10:00)
== END 2020-06-04 16:12 | disposition home health service (06) | DRG 137 ==
LOC: ER 14:29 → TELE 14:30 → TELE-EAST 06-03 14:27
PROVIDERS: ADMIT Internal Medicine; ATTEND Internal Medicine
PROC: 5A1D70Z Performance of Urinary Filtration, Intermittent, Less than 6 Hours Per Day (ICD-10-PCS; principal; 2020-06-04)
DX: U07.1 COVID-19 (principal); J12.82 Pneumonia due to coronavirus disease 2019; N18.6 End stage renal disease; D63.1 Anemia in chronic kidney disease; E11.22 Type 2 diabetes mellitus with diabetic chronic kidney disease; E66.9 Obesity, unspecified; F32.9 Major depressive disorder, single episode, unspecified; F41.9 Anxiety disorder, unspecified; E11.51 Type 2 diabetes mellitus with diabetic peripheral angiopathy without gangrene; Z88.1 Allergy status to other antibiotic agents; Z99.2 Dependence on renal dialysis; Z88.8 Allergy status to other drugs, medicaments and biological substances; Z80.1 Family history of malignant neoplasm of trachea, bronchus and lung; Z81.8 Family history of other mental and behavioral disorders; Z80.0 Family history of malignant neoplasm of digestive organs; Z82.49 Family history of ischemic heart disease and other diseases of the circulatory system; Z82.5 Family history of asthma and other chronic lower respiratory diseases; Z83.3 Family history of diabetes mellitus; Z86.73 Personal history of transient ischemic attack (TIA), and cerebral infarction without residual deficits; Z89.519 Acquired absence of unspecified leg below knee; Z90.710 Acquired absence of both cervix and uterus; Z91.15 Patient's noncompliance with renal dialysis; Z88.2 Allergy status to sulfonamides; K52.9 Noninfective gastroenteritis and colitis, unspecified
CPT/HCPCS: 36415; 71045; 74176; 80053; 82306; 82728; 83036; 83690; 83880; 83970; 84100; 85025; 85379; 86141; 87081; 87426; 90935; 93970; 94640; 96365; 96367; 96375; G0378; J0885; J1100; J1642; J1956; J2405; J3490

== ENCOUNTER 2020-08-29 15:20 | Emergency (ER) | payer MEDICAID ==
[~2020-08-29] VITALS: Ht 160 cm; Wt 84.4 kg
[~2020-08-29 15:20] MED LIST changes: +AMLO-489 PO; -AMLO5TAB15 PO; -CARV3.1240 PO; +CARV6.25 PO; -HYDR-4833 PO; +HYDR-531 PO; +PERCOT PO; -TRAM50TA2 PO
[2020-08-29] MEDS ORDERED: cloNIDine HCL 0.1 MG TAB PO ONE ×3 (15:30→21:00)
[2020-08-29] MEDS ORDERED: HYDROcodone-ACET 5/325MG TAB PO ONE (16:15)
[2020-08-29] MEDS ORDERED: METOCLOPRAMIDE HCL 10 MG TAB PO ONE (16:15)
[2020-08-29] MEDS ORDERED: MORPHINE SULFATE 4 MG/ML SYR/VIAL IM ONE (19:15)
[2020-08-29 21:40] VITALS: BP 191/107
[2020-08-29] MEDS ORDERED: HYDROmorphone HCL 2 MG/ML VL IM ONE (21:45)
== END 2020-08-29 22:29 | disposition home or self-care (01) ==
LOC: ER 15:20
DX: S82.52XA Displaced fracture of medial malleolus of left tibia, initial encounter for closed fracture (principal); S16.1XXA Strain of muscle, fascia and tendon at neck level, initial encounter; S20.219A Contusion of unspecified front wall of thorax, initial encounter; S80.02XA Contusion of left knee, initial encounter; G89.4 Chronic pain syndrome; E11.22 Type 2 diabetes mellitus with diabetic chronic kidney disease; N18.6 End stage renal disease; J45.909 Unspecified asthma, uncomplicated; Z90.49 Acquired absence of other specified parts of digestive tract; Z90.710 Acquired absence of both cervix and uterus; Z86.73 Personal history of transient ischemic attack (TIA), and cerebral infarction without residual deficits; Z99.2 Dependence on renal dialysis; V43.62XA Car passenger injured in collision with other type car in traffic accident, initial encounter; Y93.89 Activity, other specified; Y92.488 Other paved roadways as the place of occurrence of the external cause; Y99.8 Other external cause status
CPT/HCPCS: 29515; 70450; 71250; 72125; 73562; 73610; 93005; 96372; 99285; J1170; J2270

== ENCOUNTER 2020-10-15 13:57 | Emergency (ER) | payer MEDICAID ==
[~2020-10-15] VITALS: Ht 160 cm; Wt 89.4 kg
[2020-10-15] MEDS ORDERED: cloNIDine HCL 0.1 MG TAB ONE (14:04)
[2020-10-15] MEDS ORDERED: cloNIDine HCL 0.1 MG TAB PO ONE (14:15)
[2020-10-15 17:03] VITALS: BP 213/102
== END 2020-10-15 17:38 | disposition home or self-care (01) ==
LOC: ER 13:57
DX: Z47.89 Encounter for other orthopedic aftercare (principal); J45.909 Unspecified asthma, uncomplicated; I12.0 Hypertensive chronic kidney disease with stage 5 chronic kidney disease or end stage renal disease; E11.22 Type 2 diabetes mellitus with diabetic chronic kidney disease; N18.6 End stage renal disease; Z86.73 Personal history of transient ischemic attack (TIA), and cerebral infarction without residual deficits; Z86.2 Personal history of diseases of the blood and blood-forming organs and certain disorders involving the immune mechanism; Z90.49 Acquired absence of other specified parts of digestive tract; Z90.710 Acquired absence of both cervix and uterus; Z87.891 Personal history of nicotine dependence; Z79.899 Other long term (current) drug therapy; Z88.1 Allergy status to other antibiotic agents; Z88.2 Allergy status to sulfonamides; Z88.8 Allergy status to other drugs, medicaments and biological substances
CPT/HCPCS: 29515